=== PATIENT | male | born 1965 | race Caucasian/White ===

== ENCOUNTER 2019-07-01 18:30 | Emergency (ER) | payer OTHER ==
[~2019-07-01] VITALS: Ht 175.3 cm; Wt 102.1 kg
[2019-07-01] MEDS ORDERED: NORVASC 2.5 MG2.5 M1 PO (18:40)
[2019-07-01] MEDS ORDERED: LIPITOR80 MG PO (18:41)
[2019-07-01] MEDS ORDERED: ASA81BEC PO (18:41)
[2019-07-01] MEDS ORDERED: TOPROL XL50 MG (18:41)
[2019-07-01] MEDS ORDERED: PRINIVIL5 MG PO (18:44)
[2019-07-01] MEDS ORDERED: KEFLEX500 M1 PO (19:43)
[2019-07-01 19:58] VITALS: BP 189/90
== END 2019-07-01 20:00 | disposition home or self-care (01) ==
LOC: M.ERS 18:30
DX: S51.812A Laceration without foreign body of left forearm, initial encounter (principal); F17.210 Nicotine dependence, cigarettes, uncomplicated; W26.8XXA Contact with other sharp object(s), not elsewhere classified, initial encounter; Y93.89 Activity, other specified; Y92.89 Other specified places as the place of occurrence of the external cause; Y99.8 Other external cause status